=== PATIENT | female | born 1955 | race African-American/Black ===

== ENCOUNTER → 2017-07-17 15:44 | Outpatient (CLI) | payer MEDICAID | END | disposition home or self-care (01) | LOC: D.MAMMO 09:45 | DX: Z12.31 Encounter for screening mammogram for malignant neoplasm of breast (principal) ==

== ENCOUNTER 2020-05-06 09:12 | Emergency (ER) | payer MEDICAID ==
[~2020-05-06] VITALS: Ht 167.6 cm; Wt 119.1 kg
[2020-05-06 09:13] VITALS: Ht 167.6 cm; Wt 119.1 kg
[2020-05-06] MEDS ORDERED: ADVAIR 250-501 EAC1 INH (09:15)
[2020-05-06] MEDS ORDERED: PROVENTIL/2.5 MG/3 M INH (09:16)
[2020-05-06] MEDS ORDERED: PEPCID AC20 MG PO (09:16)
[2020-05-06] MEDS ORDERED: HALDOL5 MG/ML IM (09:16)
[2020-05-06] MEDS ORDERED: PROTONIX40 MG PO (09:16)
[2020-05-06] MEDS ORDERED: ATROVENT 0.02%2.5 ML UPD (09:17)
[2020-05-06] MEDS ORDERED: FLUTICASONE PRO16 GM (09:17)
[2020-05-06] MEDS ORDERED: CARDURA8 MG PO (09:17)
[2020-05-06] MEDS ORDERED: BUMEX2 MG PO (09:17)
[2020-05-06] MEDS ORDERED: CATAPRES0.1 MG PO (09:17)
[2020-05-06] MEDS ORDERED: PRAVACHOL40 MG PO (09:17)
[2020-05-06] MEDS ORDERED: MOBIC7.5 MG PO (09:17)
[2020-05-06] MEDS ORDERED: GLUCOPHAGE500 MG PO (09:18)
[2020-05-06] MEDS ORDERED: DILTIAZEM 24HR240 M4 PO (09:18)
[2020-05-06] MEDS ORDERED: LISINOPRIL40 MG PO (09:18)
[2020-05-06] MEDS ORDERED: K-DUR20 MEQ PO (09:19)
[2020-05-06] MEDS ORDERED: METOPROLOL TART25 MG PO (09:19)
[2020-05-06] MEDS ORDERED: SPIRIVA18 MCG INH (09:19)
[2020-05-06 11:06] LABS: BASOPHILS 0.4 % (0-2); EOSINOPHILS 1.5 % (0-7); HEMATOCRIT 36.6 % (36.0-48.0); HEMOGLOBIN 11.1 g/dL (12-16); IMMATURE GRANULOCYTES 0.3 % (0-5); LYMPHOCYTES 21.7 % (15-50); MCH 22.5 pg (26.0-34.0); MCHC 30.3 g/dL (31.0-37.0); MCV 74.2 fL (80.0-100.0); MEAN PLATELET VOLUME 9.9 fL (7.4-10.4); MONOCYTES 9.7 % (2-11); NEUTROPHILS 66.4 % (40-80); RBC 4.93 10x6/uL (4.00-5.40); RDW 17.6 % (11.5-14.5); WBC 6.7 10x3/uL (4.8-10.8)
[2020-05-06 11:25] LABS: ANION GAP 8.5 mmol/L (8-16); CALCIUM 9.1 mg/dL (8.5-10.1); CARBON DIOXIDE 30.3 mmol/L (21.0-32.0); CREATININE - SERUM 1.3 mg/dL (0.6-1.3); POTASSIUM - SERUM 3.8 mmol/L (3.5-5.1)
[2020-05-06 11:31] LABS: ALBUMIN 3.1 g/dL (3.4-5.0); BILIRUBIN - TOTAL 0.27 mg/dL (0.2-1.3); PROTEIN - SERUM 6.8 g/dL (6.4-8.2)
[2020-05-06 11:33] LABS: PLATELET COUNT 208 10x3/uL (130-400)
[2020-05-06 11:42] LABS: APTT 29.9 SECONDS (22.8-39.4)
[2020-05-06 11:44] LABS: D-DIMER-QUANTITATIVE 1.02 ug/mLFEU (0.20-0.54)
[2020-05-06 12:44] LABS: INR 1.04 (0.85-1.17); PROTIME 13.6 SECONDS (11.6-15.0)
[2020-05-06 15:00] VITALS: BP 154/84
== END 2020-05-06 15:00 | disposition home or self-care (01) ==
LOC: D.ER 09:12
PROVIDERS: Family Medicine
DX: M25.562 Pain in left knee (principal); E11.9 Type 2 diabetes mellitus without complications; I11.0 Hypertensive heart disease with heart failure; I50.9 Heart failure, unspecified; J44.9 Chronic obstructive pulmonary disease, unspecified; Z72.0 Tobacco use; Z79.84 Long term (current) use of oral hypoglycemic drugs